=== PATIENT | female | born 1945 | race Caucasian/White ===

== ENCOUNTER 2016-09-25 22:51 | Emergency (ER) | payer MEDICARE, OTHER ==
[~2016-09-25 22:51] MED LIST: EEMT PO; MOBIC7.5 PO; MOTRIN IB200 MG PO; PCET PO; PRIN10 PO; SYN1 PO; SYN125 PO; ZYRTEC ALLGY10 MG PO; [UNRECOGNIZED DRUG - CODE] PO
[2016-09-26] MEDS ORDERED: PAX20 PO (03:01)
[2016-09-26] MEDS ORDERED: ESTRADIOL2 MG PO (03:01)
[2016-09-26] MEDS ORDERED: MAXIMUM D3 PO (03:02)
[2016-09-26] MEDS ORDERED: PRIN10 PO (03:02)
[2016-09-26] MEDS ORDERED: PROVERA 2.5 MG2.5 MG PO (03:02)
[2016-09-26] MEDS ORDERED: PROTONIX PO (03:02)
[2016-09-26] MEDS ORDERED: SYNTHROID137 MCG PO (03:02)
[2016-09-26] MEDS ORDERED: ZANTAC300 MG PO (03:03)
[2016-09-26] MEDS ORDERED: SYSTANE OPH (03:03)
[2016-09-26] MEDS ORDERED: ZYRTEC ALLGY10 MG PO (03:03)
== END 2016-09-26 05:29 | disposition home or self-care (01) ==
LOC: ER 22:51
DX: M25.552 Pain in left hip (principal); I10 Essential (primary) hypertension; K21.9 Gastro-esophageal reflux disease without esophagitis; Z88.5 Allergy status to narcotic agent; Z79.899 Other long term (current) drug therapy; W19.XXXA Unspecified fall, initial encounter
CPT/HCPCS: 73502-LT; 73560-LT; 73700-LT; 96374; 96375; 99284; J2405